=== PATIENT | male | born 1975 | race Two or more races ===

== ENCOUNTER 2019-09-24 10:07 | Emergency (ER) | payer BC, MEDICAID ==
[~2019-09-24] VITALS: Ht 170.2 cm; Wt 89.8 kg
[2019-09-24 10:25] VITALS: BP 146/99
== END 2019-09-24 12:35 | disposition home or self-care (01) ==
LOC: ER 10:07
DX: L40.9 Psoriasis, unspecified (principal)

== ENCOUNTER 2023-08-22 14:22 | Emergency (ER) | payer BC, MEDICAID ==
[~2023-08-22] VITALS: Ht 170.2 cm; Wt 86.3 kg
[2023-08-22 18:30] VITALS: BP 160/92; PULSE 75; RESP 16; TEMP 98; O2SAT 98
[2023-08-22] MEDS: KETOROLAC TROMETH 60MG/2ML VIAL IM ONE (19:21)
[2023-08-22] MEDS ORDERED: ACE3T PO (19:22)
== END 2023-08-22 19:56 | disposition home or self-care (01) ==
LOC: ER 14:22
DX: L05.91 Pilonidal cyst without abscess (principal); I10 Essential (primary) hypertension; E11.9 Type 2 diabetes mellitus without complications; Z79.899 Other long term (current) drug therapy
CPT/HCPCS: 96372; 99283; J1885